=== PATIENT | male | born 1940 | race Caucasian/White ===

== ENCOUNTER 2017-07-20 22:14 | Emergency (ER) | payer MEDICARE, OTHER ==
[~2017-07-20 22:14] MED LIST: ALLER-CHLOR4 MG PO; AMBIEN5 MG PO; ANUSOL-HC 2.5%30 GM RC; BACTRIM DS TABL1 TAB PO; BAYER CHEWABLE81 MG PO; BETAPACE 80 MG80 MG PO; BOUDREAUXS BUTT60 GM TOPICAL; BYSTOLIC10 MG PO; BYSTOLIC20 MG PO; CARDIZEM60 MG PO; CECLOR250 MG PO; CYCLOBENZAPRINE10 MG PO; HEMOCYTE PLUS C1 CAP PO; HYDRALAZINE HC100 MG PO; HYDRALAZINE HCL25 MG PO; HYDROCODONE-APA1 TAB PO; IPRAT-ALBUT 0.5-3 ML UPD; LASIX20 MG PO; LEXAPRO10 MG PO; LIPITOR20 MG PO; MEGACE400 MG/10; MIDODRINE HCL5 MG PO; MYLANTA / MAALO30 ML PO; NEURONTIN 300300 MG PO; NORVASC5 MG PO; NYAMYC60 GM TOPICAL; NYSTATIN15 GM; NYSTATIN15 GM TOPICAL; PERCOCET 7.5/321 TAB PO; PLAVIX75 MG PO; PRILOSEC20 MG PO; PROCTOFOAM-HC 110 GM RC; RESTORIL22.5 MG; RESTORIL7.5 MG PO; ZESTRIL40 MG PO; ZOLOFT25 MG PO
[2017-07-20 23:09] LABS: BASOPHILS 0.2 % (0-2); EOSINOPHILS 4.5 % (0-7); HEMOGLOBIN 12.7 g/dL (13.5-17.5); IMMATURE GRANULOCYTES 0.6 % (0-5); LYMPHOCYTES 25.2 % (15-50); MCH 28.8 pg (26.0-34.0); MCHC 31.8 g/dL (31.0-37.0); MCV 90.7 fL (80.0-100.0); MEAN PLATELET VOLUME 9.4 fL (7.4-10.4); MONOCYTES 11.3 % (2-11); NEUTROPHILS 58.2 % (40-80); PLATELET COUNT 281 10x3/uL (130-400); RBC 4.41 10x6/uL (4.20-6.10); RDW 13.7 % (11.5-14.5); WBC 6.6 10x3/uL (4.8-10.8)
[2017-07-20 23:20] LABS: ALBUMIN 3.2 g/dL (3.4-5.0); ALKALINE PHOSPHATASE 96 U/L (46-116); ALT (SGPT) 18 U/L (10-68); CALC OSMOLALITY 288 mosm/kg (275-300); CALCIUM 8.5 mg/dL (8.5-10.1); CARBON DIOXIDE 26.5 mmol/L (21.0-32.0); CHLORIDE - SERUM 106 mmol/L (98-107); POTASSIUM - SERUM 4.2 mmol/L (3.5-5.1); PROTEIN - SERUM 6.7 g/dL (6.4-8.2); SODIUM 141 mmol/L (136-145); UREA NITROGEN 31 mg/dL (7-18); eGFR NON AFRICAN AMERICAN 22 mL/min (90-120)
[2017-07-20 23:23] LABS: GLUCOSE 113 mg/dL (74-106)
[2017-07-20 23:24] LABS: TROPONIN-I < 0.017 ng/mL (0.000-0.060)
== END 2017-07-21 00:37 | disposition home or self-care (01) ==
LOC: D.ER 22:14
PROVIDERS: Emergency Medicine
DX: T82.847A Pain due to cardiac prosthetic devices, implants and grafts, initial encounter (principal); I25.10 Atherosclerotic heart disease of native coronary artery without angina pectoris; F03.90 Unspecified dementia, unspecified severity, without behavioral disturbance, psychotic disturbance, mood disturbance, and anxiety

== ENCOUNTER → 2017-09-10 13:27 | Outpatient (CLI) | payer MEDICARE, OTHER | END | disposition home or self-care (01) | LOC: D.CT 13:27 | DX: R41.82 Altered mental status, unspecified (principal); N39.41 Urge incontinence ==

== ENCOUNTER 2018-03-22 13:16 | Inpatient (IN) | payer MEDICARE ==
[~2018-03-22] VITALS: Ht 185.4 cm; Wt 93.4 kg
--- NOTE | ~2018-03-22 | EC ---
PATIENT:MICHELLE LUDWIG DATE OF SERVICE: 03/22/18 SEX: M MEDICAL RECORD: [id number] DATE OF : 44 LOCATION:D.M2 D.211 AGE OF PATIENT: 77 ADMISSION DATE: 03/22/18 REFERRING PHYSICIAN: INTERPRETING PHYSICIAN: SHERLY JEFFERSON MD ECHOCARDIOGRAM REPORT ECHO CHARGES 4 ECHO COMPLETE Date: 03/23 CLINICAL DIAGNOSIS: CHEST PAIN HX OF CAD/CABG/ICD ECHOCARDIOGRAPHIC MEASUREMENTS (adult normal given) AC root (d.<3.7cm) 3.7 cm LV Septum d (<1.2 cm> 1.8 cm Valve Excursion 1.7 cm LV Septum (systole) 2.0 cm Left Atria (s.<4.0cm> 4.2 cm LVPW d(<1.2cm) 1.4 cm RV (d.<2.3cm) 3.7 cm LVPW (sytole) 1.7 cm LV diastole(<5.6CM) 5.5 cm MV E-F(>70mm/sec) cm LV systole 4.1 cm LVOT Diameter 1.9 cm MV exc.(>10mm) 1.5 cm Est.ejection fraction (50-75%) % DOPPLER: LVIT cm/sec A 73.0 cm/sec E 43.0 cm/sec LA cm/sec RVSP 29 mmHg LVOT 93 cm/sec AOP1/2T m/s Asc. Ao 100 cm/sec RVOT cm/sec RA cm/sec PA cm/sec AV Gradient Peak 3.99 mmHg AV Mean 2.14 mmHg AV Area 2.1 cm MV Gradient Peak 2.81 mmHg MV Mean 1.04 mmHg MV Area cm COMMENTS: Radio Board Operator Announcer: 2 ABENA MEJIA Management Consultant: 4 Dr. Jefferson TAPE# PACS Pericardial Effusion N DATE OF SERVICE: PROCEDURE: Transthoracic echocardiogram. FINDINGS: 1. Left ventricle shows evidence of left ventricular hypertrophy. Endocardial structures were difficult to visualize. The patient has a baseline bundle branch block. The overall ejection fraction appears to be 45% to 50%. 2. The left atrium is mildly dilated. 3. The aortic valve has mild aortic insufficiency, otherwise structurally ECHOCARDIOGRAM REPORT [id number] MICHELLE LUDWIG normal. 4. The mitral valve appears to be structurally normal with mild mitral regurgitation. 5. The tricuspid valve has mild tricuspid regurgitation. The RVSP is normal. 6. The pericardium is normal. 7. The right ventricle is moderately dilated. There is a pacer artifact seen in the right ventricle and the right atrium. 8. The inflow characteristics in the left ventricle show diastolic dysfunction. 9. The pulmonic valve appears to be normal. CONCLUSIONS: The patient has evidence of hypertensive heart disease, mildly reduced ejection fraction with mild global hypokinesis, ejection of 45% to 50%. Pacer artifact and dilatation of the right ventricle is also seen. TRANSINT:[id number] Voice Confirmation ID: [id number] DOCUMENT ID: [id number] SHERLY JEFFERSON MD at 0942 CC: [id number] DICTATION DATE: 03/24/18 0704 CLEANING ATTENDANT: 03/24/18 0823 DIS IN 03/26/18 [facility] [address] [place] [address]
[2018-03-22 14:16] LABS: BASOPHILS 0.1 % (0-2); EOSINOPHILS 0.1 % (0-7); HEMATOCRIT 47.3 % (42.0-54.0); HEMOGLOBIN 15.4 g/dL (13.5-17.5); IMMATURE GRANULOCYTES 0.3 % (0-5); LYMPHOCYTES 6.8 % (15-50); MCH 29.8 pg (26.0-34.0); MCHC 32.6 g/dL (31.0-37.0); MCV 91.5 fL (80.0-100.0); MEAN PLATELET VOLUME 9.7 fL (7.4-10.4); MONOCYTES 7.3 % (2-11); NEUTROPHILS 85.4 % (40-80); PLATELET COUNT 261 10x3/uL (130-400); RBC 5.17 10x6/uL (4.20-6.10); RDW 13.5 % (11.5-14.5); WBC 16.3 10x3/uL (4.8-10.8)
[2018-03-22 14:30] LABS: ALBUMIN 3.9 g/dL (3.4-5.0); ALKALINE PHOSPHATASE 107 U/L (46-116); ALT (SGPT) 18 U/L (10-68); BILIRUBIN - TOTAL 0.84 mg/dL (0.2-1.3); CALC OSMOLALITY 291 mosm/kg (275-300); CARBON DIOXIDE 24.8 mmol/L (21.0-32.0); CHLORIDE - SERUM 103 mmol/L (98-107); GLUCOSE 142 mg/dL (74-106); POTASSIUM - SERUM 4.8 mmol/L (3.5-5.1); PROTEIN - SERUM 8.9 g/dL (6.4-8.2); SODIUM 140 mmol/L (136-145); UREA NITROGEN 42 mg/dL (7-18); eGFR NON AFRICAN AMERICAN 22 mL/min (90-120)
[2018-03-22 14:40] LABS: CHOL - HDL RATIO 3.5 ratio (2.3-4.9); CHOLESTEROL, TOTAL 181 mg/dL (0-200); CKMB 2.3 U/L (0.0-3.6); CREATINE KINASE 61 UL (21-232); HDL CHOLESTEROL 52 mg/dL (32-96); LDL CHOLESTEROL 116 mg/dL (0-100); LDL-HDL RATIO 2.2 ratio (1.5-3.5); TRIGLYCERIDE 66 mg/dL (30-200)
[2018-03-22 14:41] LABS: TROPONIN-I 0.016 ng/mL (0.000-0.060)
[2018-03-22] MEDS ORDERED: OXYBUTYNIN CHLOR5 MG PO (18:08)
[2018-03-22] MEDS ORDERED: SEROQUEL25 MG PO (18:09)
[2018-03-22] MEDS ORDERED: MIDODRINE HCL5 MG PO (18:10)
[2018-03-22] MEDS ORDERED: FLOMAX0.4 MG PO (18:10)
[2018-03-22] MEDS ORDERED: FOLIC ACID1 MG PO (18:12)
[2018-03-22 18:24] VITALS: BP 115/73; BMI 28.4
[2018-03-22 20:00] VITALS: BP 101/52
[2018-03-22 20:09] LABS: CKMB 1.4 U/L (0.0-3.6); CREATINE KINASE 48 UL (21-232)
[2018-03-22 20:10] LABS: TROPONIN-I < 0.017 ng/mL (0.000-0.060)
[2018-03-23 01:30] LABS: CKMB 1.8 U/L (0.0-3.6); CREATINE KINASE 57 UL (21-232); TROPONIN-I < 0.017 ng/mL (0.000-0.060)
[2018-03-23 02:30] VITALS: BP 162/66
[2018-03-23 05:00] VITALS: BP 151/70
[2018-03-23 06:53] LABS: CKMB 1.9 U/L (0.0-3.6); CREATINE KINASE 65 UL (21-232); TROPONIN-I < 0.017 ng/mL (0.000-0.060)
[2018-03-23 09:07] VITALS: BP 134/65
[2018-03-23 12:51] VITALS: BP 138/88
[2018-03-23 16:41] VITALS: BP 131/75
[2018-03-23 21:57] VITALS: BP 123/62
[2018-03-24 01:08] VITALS: BP 122/69
[2018-03-24 05:54] VITALS: BP 87/48
[2018-03-24 09:18] VITALS: BP 116/65
[2018-03-24 11:24] VITALS: BP 129/65
[2018-03-24 13:08] VITALS: Ht 185.4 cm; Wt 93.4 kg
[2018-03-24 13:16] LABS: BASOPHILS 0.1 % (0-2); EOSINOPHILS 1.8 % (0-7); HEMATOCRIT 39.2 % (42.0-54.0); HEMOGLOBIN 12.5 g/dL (13.5-17.5); IMMATURE GRANULOCYTES 0.4 % (0-5); LYMPHOCYTES 16.6 % (15-50); MCH 29.3 pg (26.0-34.0); MCHC 31.9 g/dL (31.0-37.0); MCV 91.8 fL (80.0-100.0); MEAN PLATELET VOLUME 9.6 fL (7.4-10.4); MONOCYTES 11.5 % (2-11); NEUTROPHILS 69.6 % (40-80); PLATELET COUNT 241 10x3/uL (130-400); RBC 4.27 10x6/uL (4.20-6.10); RDW 13.7 % (11.5-14.5)
[2018-03-24 13:28] LABS: ANION GAP 16.4 mmol/L (8-16); CALCIUM 8.2 mg/dL (8.5-10.1); CARBON DIOXIDE 21.9 mmol/L (21.0-32.0); CREATININE - SERUM 3.1 mg/dL (0.6-1.3); POTASSIUM - SERUM 4.3 mmol/L (3.5-5.1)
[2018-03-24 16:15] VITALS: BP 109/45
[2018-03-24 17:55] LABS: APPEARANCE CLEAR (CLEAR); COLOR YELLOW (YELLOW)
[2018-03-24 17:56] LABS: BILIRUBIN NEGATIVE (NEGATIVE); GLUCOSE NEGATIVE (NEGATIVE); KETONE NEGATIVE (NEGATIVE); NITRITE NEGATIVE (NEGATIVE); PROTEIN NEGATIVE (NEGATIVE); UROBILINOGEN NORMAL (NORMAL)
[2018-03-24 19:00] VITALS: BP 137/64
[2018-03-25] VITALS: BP 109/63
[2018-03-25 04:00] VITALS: BP 111/53
[2018-03-25 07:15] LABS: BASOPHILS 0.1 % (0-2); EOSINOPHILS 2.6 % (0-7); HEMATOCRIT 37.2 % (42.0-54.0); HEMOGLOBIN 11.8 g/dL (13.5-17.5); IMMATURE GRANULOCYTES 0.4 % (0-5); LYMPHOCYTES 16.4 % (15-50); MCH 28.6 pg (26.0-34.0); MCHC 31.7 g/dL (31.0-37.0); MCV 90.3 fL (80.0-100.0); MEAN PLATELET VOLUME 9.8 fL (7.4-10.4); MONOCYTES 15.1 % (2-11); NEUTROPHILS 65.4 % (40-80); PLATELET COUNT 245 10x3/uL (130-400); RBC 4.12 10x6/uL (4.20-6.10); RDW 13.4 % (11.5-14.5); WBC 7.7 10x3/uL (4.8-10.8)
[2018-03-25 07:29] LABS: ANION GAP 17.2 mmol/L (8-16); CALCIUM 8.3 mg/dL (8.5-10.1); CARBON DIOXIDE 19.8 mmol/L (21.0-32.0); CREATININE - SERUM 3.1 mg/dL (0.6-1.3)
[2018-03-25 10:29] VITALS: BP 137/67
[2018-03-25 11:42] VITALS: BP 130/70
[2018-03-25 15:46] VITALS: BP 114/53
[2018-03-25 20:00] VITALS: BP 138/60
[2018-03-26 04:00] VITALS: BP 132/63
[2018-03-26 06:10] LABS: BASOPHILS 0.1 % (0-2); EOSINOPHILS 1.8 % (0-7); HEMATOCRIT 39.3 % (42.0-54.0); HEMOGLOBIN 12.8 g/dL (13.5-17.5); IMMATURE GRANULOCYTES 0.5 % (0-5); LYMPHOCYTES 15.6 % (15-50); MCH 29.6 pg (26.0-34.0); MCHC 32.6 g/dL (31.0-37.0); MCV 90.8 fL (80.0-100.0); MEAN PLATELET VOLUME 10.1 fL (7.4-10.4); MONOCYTES 12.1 % (2-11); NEUTROPHILS 69.9 % (40-80); PLATELET COUNT 272 10x3/uL (130-400); RBC 4.33 10x6/uL (4.20-6.10); RDW 13.3 % (11.5-14.5); WBC 9.2 10x3/uL (4.8-10.8)
[2018-03-26 06:26] LABS: ANION GAP 16.8 mmol/L (8-16); CALCIUM 8.2 mg/dL (8.5-10.1); CARBON DIOXIDE 21.7 mmol/L (21.0-32.0); CREATININE - SERUM 3.1 mg/dL (0.6-1.3); POTASSIUM - SERUM 4.5 mmol/L (3.5-5.1)
[2018-03-26] MEDS ORDERED: FLOMAX0.4 MG PO (09:39)
[2018-03-26] MEDS ORDERED: METOPROLOL TART50 MG PO (09:39)
[2018-03-26] MEDS ORDERED: LIPITOR20 MG PO (09:39)
[2018-03-26] MEDS ORDERED: NORVASC5 MG PO (09:39)
[2018-03-26] MEDS ORDERED: CARDIZEM60 MG PO (09:39)
[2018-03-26] MEDS ORDERED: CARAFATE1 G PO (09:40)
[2018-03-26] MEDS ORDERED: FOLIC ACID1 MG PO (09:40)
[2018-03-26] MEDS ORDERED: PROTONIX40 MG PO (09:40)
[2018-03-26] MEDS ORDERED: NITRO-DUR0.3 MG TRANSDERM (09:40)
[2018-03-26] MEDS ORDERED: ASPIRIN81 MG PO (09:40)
[2018-03-26] MEDS ORDERED: OXYBUTYNIN CHLOR5 MG PO (09:40)
[2018-03-31 17:11] LABS: AEROBE ID Final report (()); RESULT 1 Aerococcus urinae (())
[2018-04-01 15:25] LABS: AEROBE ID Final report (())
== END 2018-03-26 13:48 | DRG 381 ==
LOC: D.ER 13:16 → D.M2 15:56 → D.EDHOLD 15:56 → D.M2 16:23
PROVIDERS: Emergency Medicine; Internal Medicine Gastroenterology; Internal Medicine Nephrology
PROC: 0DB78ZX Excision of Stomach, Pylorus, Via Natural or Artificial Opening Endoscopic, Diagnostic (ICD-10-PCS; 2018-03-25)
PROC: 0DB58ZX Excision of Esophagus, Via Natural or Artificial Opening Endoscopic, Diagnostic (ICD-10-PCS; 2018-03-25)
PROC: 0DB98ZX Excision of Duodenum, Via Natural or Artificial Opening Endoscopic, Diagnostic (ICD-10-PCS; principal; 2018-03-25 08:00)
DX: K22.10 Ulcer of esophagus without bleeding (principal); N18.4 Chronic kidney disease, stage 4 (severe); I16.0 Hypertensive urgency; I12.9 Hypertensive chronic kidney disease with stage 1 through stage 4 chronic kidney disease, or unspecified chronic kidney disease; I25.10 Atherosclerotic heart disease of native coronary artery without angina pectoris; N40.0 Benign prostatic hyperplasia without lower urinary tract symptoms; I08.3 Combined rheumatic disorders of mitral, aortic and tricuspid valves; F03.90 Unspecified dementia, unspecified severity, without behavioral disturbance, psychotic disturbance, mood disturbance, and anxiety; K29.70 Gastritis, unspecified, without bleeding; K44.9 Diaphragmatic hernia without obstruction or gangrene; K21.9 Gastro-esophageal reflux disease without esophagitis; K29.80 Duodenitis without bleeding; Z95.1 Presence of aortocoronary bypass graft; Z95.0 Presence of cardiac pacemaker; Z87.891 Personal history of nicotine dependence

== ENCOUNTER 2018-04-21 16:12 | Emergency (ER) | payer MEDICARE ==
[2018-03-24 13:08] VITALS: BMI 27.7
[~2018-04-21 16:12] MED LIST changes: +ASPIRIN81 MG PO; +CARAFATE1 G PO; +FLOMAX0.4 MG PO; +FOLIC ACID1 MG PO; +METOPROLOL TART50 MG PO; +NITRO-DUR0.3 MG TRANSDERM; +OXYBUTYNIN CHLOR5 MG PO; +PROTONIX40 MG PO; +SEROQUEL25 MG PO
== END 2018-04-21 20:40 | disposition home or self-care (01) ==
LOC: D.ER 16:12
DX: S39.011A Strain of muscle, fascia and tendon of abdomen, initial encounter (principal); X58.XXXA Exposure to other specified factors, initial encounter; Y93.89 Activity, other specified; Y92.013 Bedroom of single-family (private) house as the place of occurrence of the external cause

== ENCOUNTER → 2018-05-08 10:42 | Outpatient (CLI) | payer MEDICARE ==
[~2018-05-08] VITALS: Ht 185.4 cm; Wt 84.1 kg
[2018-05-08 14:51] VITALS: BP 143/72; Ht 185.4 cm; Wt 84.1 kg
== END | disposition home or self-care (01) ==
LOC: D.OPS 10:42
DX: I12.9 Hypertensive chronic kidney disease with stage 1 through stage 4 chronic kidney disease, or unspecified chronic kidney disease (principal); N18.4 Chronic kidney disease, stage 4 (severe); Z01.812 Encounter for preprocedural laboratory examination

== ENCOUNTER 2018-06-12 13:27 | Day surgery (SDC) | payer MEDICARE ==
[~2018-06-12] VITALS: Ht 185.4 cm; Wt 94.1 kg
--- NOTE | ~2018-06-12 | OP ---
PATIENT NAME: MICHELLE JONAS MEDICAL RECORD: [id number] :42 [facility] DATE: SURGEON: ZEFERINO ALANIZ MD DATE OF OPERATION: 06/12/2018 PROCEDURE: EGD with biopsy. INDICATIONS: Mr. Jonas is a pleasant 77-year-old gentleman with a history of coronary artery disease, hypertension, arrhythmia status post pacemaker placement, pacemaker/defibrillator and intracranial bleed after a fall in 2014. He presented to the Emergency Department in late February 2018 with symptoms of chest pain, mid abdominal pain with associated nausea and vomiting. His lipase was mildly elevated. He underwent an EGD on 03/25/2018 with finding showing moderate to severe ulcerative esophagitis, small hiatal hernia, mild gastritis and duodenitis. He was treated with Protonix 40 mg twice a day and Carafate. He presents for followup EGD. PREMEDICATIONS: Total IV anesthesia (propofol 100 mg). INSTRUMENT: Olympus video gastroscope. PROCEDURE AND FINDINGS: After receiving informed consent, Mr. Jonas's posterior pharynx was anesthetized with Cetacaine spray, placed in left lateral decubitus position and sedated as per anesthesia. After achieving adequate level of sedation, gastroscope was introduced per orally and advanced in the duodenum without difficulty. The esophageal mucosa was without erythema, ulcers, or masses. The esophageal ulcers had completely healed. A thick nonobstructing ring was noted at the GE junction. Small hiatal hernia is present. Gastric mucosa was notable for minimal prepyloric erythema and antral biopsies were obtained to rule out Helicobacter pylori. No lesions were seen along the incisura, in the cardia or fundus. Pylorus was patent and competent. There was mild patchy erythema in the duodenal bulb and proximal aspect of the second portion of the duodenum. No ulcers were seen. Gastroscope was then withdrawn. Mr. Jonas tolerated the procedure well, no immediate complications. ASSESSMENT: 1. Healed esophageal ulcers. 2. Thick nonobstructing esophageal Schatzki ring. 3. Small hiatal hernia. 4. Mild gastroduodenitis. RECOMMENDATIONS: 1. Follow up histopathology. 2. Continue Protonix 40 mg twice a day. TRANSINT:[id number] Voice Confirmation ID: [id number] DOCUMENT ID: [id number] OPERATIVE REPORT [id number] MICHELLE JONAS ZEFERINO ALANIZ MD at 1206 CC: SHARMILA BRIGHT MD [id number] DICTATION DATE: 06/12/18 1746 CUSTOM BOW MAKER: 06/12/[address] [facility] 06/12/18 [place] [id number] [place] [address]
[2018-06-12 14:13] LABS: BASOPHILS 0.1 % (0-2); EOSINOPHILS 1.5 % (0-7); HEMATOCRIT 41.9 % (42.0-54.0); HEMOGLOBIN 13.6 g/dL (13.5-17.5); IMMATURE GRANULOCYTES 0.2 % (0-5); LYMPHOCYTES 18.5 % (15-50); MCH 29.4 pg (26.0-34.0); MCHC 32.5 g/dL (31.0-37.0); MCV 90.7 fL (80.0-100.0); MEAN PLATELET VOLUME 9.5 fL (7.4-10.4); MONOCYTES 10.7 % (2-11); PLATELET COUNT 251 10x3/uL (130-400); RBC 4.62 10x6/uL (4.20-6.10); RDW 13.5 % (11.5-14.5); WBC 9.1 10x3/uL (4.8-10.8)
[2018-06-12 14:32] LABS: ALBUMIN 3.5 g/dL (3.4-5.0); BILIRUBIN - TOTAL 0.57 mg/dL (0.2-1.3); CALCIUM 8.7 mg/dL (8.5-10.1); CARBON DIOXIDE 31.1 mmol/L (21.0-32.0); CREATININE - SERUM 2.4 mg/dL (0.6-1.3); POTASSIUM - SERUM 5.1 mmol/L (3.5-5.1); PROTEIN - SERUM 7.4 g/dL (6.4-8.2)
[2018-06-12 15:23] VITALS: BP 1669/97; Ht 185.4 cm; Wt 94.1 kg
== END 2018-06-12 18:40 | disposition home or self-care (01) ==
LOC: D.OPS 13:27
PROVIDERS: Internal Medicine Gastroenterology
DX: K22.2 Esophageal obstruction (principal); K44.9 Diaphragmatic hernia without obstruction or gangrene; K29.90 Gastroduodenitis, unspecified, without bleeding; I25.10 Atherosclerotic heart disease of native coronary artery without angina pectoris; I10 Essential (primary) hypertension; I49.9 Cardiac arrhythmia, unspecified; Z95.0 Presence of cardiac pacemaker; Z86.73 Personal history of transient ischemic attack (TIA), and cerebral infarction without residual deficits; Z01.812 Encounter for preprocedural laboratory examination